=== PATIENT | female | born 1980 ===

== ENCOUNTER 2023-03-07 15:36 | Emergency (ER) | payer SELFPAY ==
[2023-03-07] MEDS ORDERED: Morphine 4 MG/ML VIAL ONE (16:05)
== END 2023-03-07 16:38 | disposition home or self-care (01) ==
LOC: MADERS 15:36
DX: M54.50 Low back pain, unspecified (principal); F17.210 Nicotine dependence, cigarettes, uncomplicated; E78.00 Pure hypercholesterolemia, unspecified; W54.1XXA Struck by dog, initial encounter; Z79.899 Other long term (current) drug therapy
CPT/HCPCS: 72131; 96372; J2270